=== PATIENT | male | born 1955 | race Two or more races ===

== ENCOUNTER 2020-08-07 05:40 | Day surgery (SDC) | payer OTHER | END 2020-08-07 10:20 | disposition home or self-care (01) | LOC: AMB-ENDOS 05:40 | PROVIDERS: ATTEND Colon & Rectal Surgery | DX: D12.3 Benign neoplasm of transverse colon (principal); D12.5 Benign neoplasm of sigmoid colon; K64.1 Second degree hemorrhoids; Z12.11 Encounter for screening for malignant neoplasm of colon; Z20.828 Contact with and (suspected) exposure to other viral communicable diseases ==